=== PATIENT | male | born 1940 | race Caucasian/White ===

== ENCOUNTER 2018-09-13 04:42 | Outpatient (CLI) | payer MEDICARE, BC ==
[2018-09-13 11:44] LABS: #Basophils 0.1 thou/uL (0.0-0.2); #Eosinphils 0.3 thou/uL (0.0-0.7); #Lymphocytes 1.5 thou/uL (1.20-3.40); #Monocytes 0.7 thou/uL (0.11-0.59); #Neutrophils 6.8 thou/uL (1.40-6.50); %Basophils 0.7 % (0.0-1.0); %Eosinophils 3.4 % (0.0-10.0); %Lymphocytes 15.8 % (21.0-51.0); %Monocytes 7.2 % (0.0-10.0); %Neutrophils 72.9 % (42.0-75.0); Hemoglobin 14.4 g/dL (14.0-18.0); Mean Corpuscular HGB CONC 33.2 g/dL (32.0-36.0); Mean Corpuscular Hemoglobin 30.9 pg (27.0-31.0); Mean Corpuscular Volume 93.2 fL (78.0-98.0); Mean Platelet Volume 7.7 fL (7.4-10.4); Platelet Count 214 thou/uL (130-400); RBC Distribution Width 12.1 % (11.5-14.5); Red Blood Cell (RBC) Count 4.66 mill/uL (4.70-6.10); White Blood Cell (WBC) Count 9.4 thou/uL (4.8-10.8)
[2018-09-13 11:48] LABS: PTT 31.9 SEC (22.9-36.1); Prothrombin Time 13.3 SEC (12.0-14.7)
[2018-09-13 12:06] LABS: Anion Gap 12 mmol/L (10-20); BUN (Urea Nitrogen) 20 mg/dL (8.4-25.7); Calc. Creatinine Clearance 0 mL/min (70-130); Calcium 9.1 mg/dL (7.8-10.44); Carbon Dioxide 27 mmol/L (23-31); Chloride 102 mmol/L (98-107); Estimated GFR-MDRD 52; Glucose 157 mg/dL (83-110); Potassium 4.4 mmol/L (3.5-5.1); Sodium 137 mmol/L (136-145)
== END 2018-09-13 04:43 | disposition home or self-care (01) ==
LOC: LABBT 04:42
PROVIDERS: ATTEND Orthopaedic Surgery
DX: Z01.818 Encounter for other preprocedural examination (principal); M17.12 Unilateral primary osteoarthritis, left knee
CPT/HCPCS: 80048; 85025; 85610; 85730; 93005; 93010

== ENCOUNTER 2018-09-19 07:01 | Day surgery (SDC) | payer MEDICARE, BC ==
[2018-09-19] MEDS ORDERED: Tranexamic Acid 1,000 MG/10 ML VIAL ONE ×2 (07:37→07:40)
[2018-09-19] MEDS ORDERED: Sodium Chloride 0.9% 100 ML ONE (07:37)
[2018-09-19] MEDS ORDERED: Vancomycin HCl 1.5 GM in Sodium Chloride 0.9% 250 ML 300 ML IVPB SCH (08:00)
[2018-09-19] MEDS ORDERED: Midazolam HCl 2 mg/2 ml Vial ONE (08:36)
[2018-09-19] MEDS ORDERED: Fentanyl 100 MCG/2 ML VIAL ONE ×3 (08:36→10:58)
[2018-09-19] MEDS ORDERED: diphenhydrAMINE 25 MG CAP PO PRN (08:56)
[2018-09-19] MEDS ORDERED: Zolpidem Tartrate 5 MG TAB PO PRN ×2 (08:56→09:03)
[2018-09-19] MEDS ORDERED: Acetaminophen 325 MG TAB PO PRN (08:56)
[2018-09-19] MEDS ORDERED: Promethazine HCl 25 MG/ML VIAL IM PRN ×2 (08:56→09:03)
[2018-09-19] MEDS ORDERED: Ondansetron PF 4 MG/2 ML Vial IVP PRN ×2 (08:56→09:03)
[2018-09-19] MEDS ORDERED: Aspirin 325 mg Enteric Coated Tablet PO SCH (09:00)
[2018-09-19] MEDS ORDERED: traMADol HCl 50 MG TAB PO PRN ×2 (09:03)
[2018-09-19] MEDS ORDERED: HYDROcodone/Acetaminophen 10/325 mg Tablet PO PRN ×2 (09:03)
[2018-09-19] MEDS ORDERED: Ropivacaine HCl/PF 250 ML in Premix Bag 1 BAG NERVE BLCK SCH (09:03)
[2018-09-19] MEDS ORDERED: Fentanyl 100 MCG/2 ML VIAL IV PRN (09:04)
[2018-09-19] MEDS ORDERED: HYDROcodone/Acetaminophen 5/325 mg Tablet PO PRN (10:44)
--- NOTE | 2018-09-19 13:00 | RAD ---
TWO VIEWS LEFT KNEE: Comparison: None. History: Total knee replacement. FINDINGS: Two views of the left knee shows total left knee arthroplasty without perihardware lucency or fractur e. Air in the soft tissues is from recent surgery. IMPRESSION: Status post left knee arthroplasty without evidence of complication. POS: [facility]
[2018-09-19] MEDS ORDERED: Ropivacaine 0.5% HCl/PF (150 MG/30 ML VIAL) ONE (13:09)
[2018-09-19] MEDS ORDERED: Ropivacaine 0.2% HCl/PF (40 MG/20 ML VIAL) ONE (13:09)
--- NOTE | 2018-09-19 13:13 | OP ---
DATE OF PROCEDURE: 09/19/2018 This operative note is dictated by SAIMA Schroeder, for Tereso Thomas MD, to sign. PREOPERATIVE DIAGNOSIS: End-stage tricompartmental osteoarthritis, left knee. POSTOPERATIVE DIAGNOSIS: End-stage tricompartmental osteoarthritis, left knee. OPERATIVE PROCEDURE: Cemented cruciate sparing computer-assisted navigated left total knee arthroplasty. SURGEON: Tereso Thomas MD DISPENSING OPERATOR: Glen Schroeder PA-C ANESTHESIA: General via LMA augmented with single shot sciatic block and indwelling adductor canal block. Tourniquet time was 53 minutes at 300 mmHg. COMPONENTS USED: [facility] triathlon size 6 cruciate sparing femoral component cemented with a size 6 cemented primary tibial base plate, 9 mm polyethylene fixed bearing insert, and a 35 patella button. ESTIMATED BLOOD LOSS: Less than 100. FINDINGS: End-stage severe degenerative tricompartmental disease, [id number] arthrosis, periarticular osteophyte formation, large serous effusion, hypertrophic synovium. DRAINS: None. SPECIMENS: None. COMPLICATIONS: None. COUNTS: Correct. INDICATION FOR SURGERY: Calvin is a 78-year-old white male, who has had progressive left knee pain and problem with standing and walking for the last 5 to 7 years. He has failed conservative management and elected to proceed with total knee arthroplasty as definitive treatment of his pain. PROCEDURE IN DETAIL: After informed consent was obtained in the preoperative holding area, the patient was taken to the operative suite where general anesthesia was induced. Once adequate level of general anesthesia was obtained, the patient was positioned and a well-padded tourniquet was placed around the left proximal thigh. The left lower extremity was then prepped and draped in the usual sterile fashion. Prior to exsanguination, a time-out was called and all members of the surgical team agreed upon site, surgeon, and patient. The extremity was then exsanguinated and the tourniquet was raised. A midline longitudinal incision was then made directly over the patella extending 2 fingerbreadths above the superior pole of the patella and 2 fingerbreadths inferior to the inferior patellar pole of the patella. Deeper subcutaneous layers were dissected sharply and local bleeding was controlled with Bovie electrocautery. A quad tendon longitudinal split was then made sharply and a median parapatellar arthrotomy was carried out both sharp and with Bovie electrocautery, carried down to 1 fingerbreadth medial to the tibial tubercle. The knee was then placed into flexion and the patella was everted nicely, and a copious fat pad ectomy was performed, allowing for greater exposure of the tibia. The computer-assisted distal femoral fiducial was then placed and pinned firmly, and the distal femoral cutting guide was pinned firmly into place. The oscillating saw was then used to remove the appropriate amount of bone. The 4- in-1 cutting block was then placed on the distal femur and the oscillating saw was used to remove the appropriate amount of bone off the anterior, posterior, and chamfer cuts. After completion of bone cuts, the anterior cruciate ligament was resected sharply and the posterior cruciate ligament retractor was placed and the tibia was subluxed for better exposure. Partial meniscectomies were carried out, and the tibial computer-assisted fiducial was pinned, and the cutting guide was placed. Oscillating saw was then used to remove the bone, with Hohmann retractors used to take care and protect the collateral ligaments. After the tibial resection was performed, a laminar lab tech was placed in between the freshened bone cuts. The knee placed at 90 degrees and further bilateral meniscectomies were carried out , and the curved osteotome and curettage were used to remove any excess bone spurs in the posterior compartment. The trial femoral component, tibial baseplate were placed with the appropriate polyethylene trial insert with an appropriate polyethylene spacer and patellar button. The knee was taken through full range of motion with flexion and extension from 0 to 90 degrees and patellar broach squarely in the trochlea without any squinting or subluxation noted. The knee was also stable to varus and valgus stressing at 0, 15, 45, and 90 degrees of flexion. The drawer was negative. All trial components were then removed and the keel punch was used to provide the appropriate defect in the tibia with a mallet. The freshened bone cuts were copiously irrigated with pulsatile lavage of about 1.5 L to remove all excess debris. The freshened bone cuts were then dried with suction and lap sponge. The knee was placed in flexion and retractors were placed to provide access to all bone cuts. Tobramycin-impregnated methyl methacrylate cement was then placed on the freshened bone cuts and implants which were malleted firmly into place. Curettage and Garfield elevators were used to remove any excess bone cement. The knee was placed into full extension and the patellar button was placed under compression, and the cement was allowed to cure. Once completed, the components were again taken through full range of motion and copious irrigation of the knee was carried out with another liter of normal saline. All components were inspected fully with full range of motion and varus and valgus stressing. There was no laxity noted and full extension was observed clinically. Primary closure was accomplished with #2 interrupted Vicryl stitch of the arthrotomy defect. This was oversewn with a #2 running Quill barbed stitch. The subcutaneous layer was then closed with a running 0 barbed Monocryl stitch and skin closure accomplished with a running subcuticular 3-0 Monocryl barbed Quill stitch and augmented with cement on the skin. Tourniquet was lowered. Good spontaneous return of distal pulses was noted clinically and a sterile dressing was applied to the incision. The procedure was terminated without any complications. The patient was awakened in the operative suite and taken to the recovery room in stable condition. Job ID: [id number] [facility]
[2018-09-19 13:36] VITALS: BMI 33.2
[2018-09-19] MEDS: Lisinopril 20 MG TAB PO SCH (14:02)
[2018-09-19] MEDS: Aspirin 81 mg Enteric Coated Tablet PO SCH ×2 (14:02→20:18)
[2018-09-19] MEDS: Atenolol 25 MG TAB PO SCH (14:02)
[2018-09-19] MEDS ORDERED: PROPOFOL 200 MG/20 ML VIAL ONE (14:46)
[2018-09-19] MEDS ORDERED: Ondansetron PF 4 MG/2 ML Vial ONE (14:46)
[2018-09-19] MEDS ORDERED: Ketorolac Tromethamine 30 MG/ML VIAL ONE (14:46)
[2018-09-19] MEDS: CEFAZOLIN 2 GM in Premix Bag 1 BAG IVPB SCH ×2 (15:34→23:25)
[2018-09-19] MEDS: Sodium Chloride 0.9% 1,000 ML IV SCH ×2 (15:35→18:46)
[2018-09-19] MEDS ORDERED: Dextrose 50% Abboject 50 ML SYRINGE IVP PRN (16:59)
[2018-09-19] MEDS ORDERED: Dextrose 5% in Water 1,000 ML IV PRN (16:59)
[2018-09-19] MEDS: HumaLOG 300 UNITS/3 ML VIAL SC PRN (17:11)
[2018-09-19] MEDS: Tamsulosin HCl 0.4 MG CAP PO SCH (20:17)
[2018-09-19] MEDS: Glimepiride 4 MG TAB PO SCH (20:17)
[2018-09-19] MEDS: Finasteride 5 MG TAB PO SCH (20:18)
[2018-09-20] MEDS: HYDROcodone/Acetaminophen 5/325 mg Tablet PO PRN ×3 (03:09→18:36)
[2018-09-20] MEDS: Sodium Chloride 0.9% 1,000 ML IV SCH ×2 (04:44→15:04)
[2018-09-20 05:54] LABS: Hemoglobin 12.4 g/dL (14.0-18.0); Mean Corpuscular HGB CONC 33.8 g/dL (32.0-36.0); Mean Corpuscular Hemoglobin 31.4 pg (27.0-31.0); Mean Platelet Volume 7.2 fL (7.4-10.4); Platelet Count 189 thou/uL (130-400); RBC Distribution Width 11.9 % (11.5-14.5); Red Blood Cell (RBC) Count 3.96 mill/uL (4.70-6.10); White Blood Cell (WBC) Count 12.4 thou/uL (4.8-10.8)
[2018-09-20] MEDS: HumaLOG 300 UNITS/3 ML VIAL SC PRN ×3 (06:00→18:30)
[2018-09-20] MEDS: Aspirin 81 mg Enteric Coated Tablet PO SCH ×2 (08:17→21:24)
[2018-09-20] MEDS: Multivitamin W/ Minerals 1 TAB PO SCH (08:17)
[2018-09-20] MEDS: Ferrous Gluconate 324 MG TAB PO SCH ×2 (08:18→21:24)
[2018-09-20] MEDS: metFORMIN 500 MG TAB PO SCH (08:18)
[2018-09-20] MEDS: Senokot S 8.6-50 MG TAB PO SCH ×2 (08:18→21:26)
[2018-09-20] MEDS: Atenolol 25 MG TAB PO SCH (08:18)
[2018-09-20] MEDS: Loratadine 10 MG TAB PO SCH (08:18)
[2018-09-20] MEDS: Glimepiride 4 MG TAB PO SCH ×2 (08:19→21:24)
[2018-09-20] MEDS: Lisinopril 20 MG TAB PO SCH (08:19)
--- NOTE | 2018-09-20 08:40 | CON ---
DATE OF CONSULTATION: 09/20/2018 HISTORY OF PRESENT ILLNESS: The patient is a 78-year-old male, who underwent left knee replacement surgery. He has a previous history of hypertension, type 2 diabetes mellitus. . He has undergone left total knee replacement and has been doing well since the surgery. PAST SURGICAL HISTORY: Positive for right total knee replacement, colectomy, hernia repair. PAST MEDICAL HISTORY: Positive as above. PHYSICAL EXAMINATION: VITAL SIGNS: Temperature 98.0, blood pressure 167/72. LUNGS: Clear. HEART: Reveals no murmur. ABDOMEN: Soft and nontender. Bowel sounds are present and active. LABORATORY DATA: Postoperative hemoglobin 12.4, hematocrit 36.8. Blood sugars are adequately controlled. IMPRESSION: Stable postoperative course. PLAN: Continue current medications. Job ID: [id number]
--- NOTE | 2018-09-20 12:15 | PRG ---
DATE OF SERVICE: 09/20/2018 SUBJECTIVE: Calvin is a 78-year-old male, who is postop day #1 from left total knee arthroplasty. His primary complaint today is regarding the extravasation around his femoral block. He has had adequate pain control, but he questions whether or not block is doing any good. OBJECTIVE: VITAL SIGNS: Temperature 98, pulse 76, respiratory rate 20 and nonlabored, blood pressure is 119/63. NEUROLOGIC AND EXTREMITIES: He is alert and oriented to person, place, time, situation. Grossly nonfocal. Appropriate and conversive with examiner. Visual inspection of the left lower extremity demonstrates his incision to be clean without any strike through. He is neurovascular intact in the extremity. He is sitting up, talking. LABORATORY DATA: Hemoglobin and hematocrit are 12.4 and 36.8. IMPRESSION: A 78-year-old male, postop day #1 left total knee arthroplasty, doing well. PLAN: Continue current care. Probable discharge tomorrow. Job ID: [id number]
[2018-09-20] MEDS ORDERED: Polyethylene Glycol 3350 17 GM Packet PO SCH (16:00)
[2018-09-20] MEDS: Finasteride 5 MG TAB PO SCH (21:24)
[2018-09-20] MEDS: Tamsulosin HCl 0.4 MG CAP PO SCH (21:26)
[2018-09-21] MEDS: Sodium Chloride 0.9% 1,000 ML IV SCH ×2 (00:08→10:06)
[2018-09-21] MEDS: HumaLOG 300 UNITS/3 ML VIAL SC PRN (05:55)
[2018-09-21 06:19] LABS: Mean Corpuscular HGB CONC 33.6 g/dL (32.0-36.0); Mean Corpuscular Hemoglobin 30.9 pg (27.0-31.0); Mean Platelet Volume 7.6 fL (7.4-10.4); Platelet Count 218 thou/uL (130-400); Red Blood Cell (RBC) Count 4.22 mill/uL (4.70-6.10); White Blood Cell (WBC) Count 14.7 thou/uL (4.8-10.8)
[2018-09-21] MEDS ORDERED: Polyethylene Glycol 3350 17 GM Packet PO SCH (09:00)
[2018-09-21] MEDS: Multivitamin W/ Minerals 1 TAB PO SCH (09:06)
[2018-09-21] MEDS: Senokot S 8.6-50 MG TAB PO SCH (09:06)
[2018-09-21] MEDS: Ferrous Gluconate 324 MG TAB PO SCH (09:06)
[2018-09-21] MEDS: metFORMIN 500 MG TAB PO SCH (09:06)
[2018-09-21] MEDS: Loratadine 10 MG TAB PO SCH (09:07)
[2018-09-21] MEDS: Glimepiride 4 MG TAB PO SCH (09:07)
[2018-09-21] MEDS: Aspirin 81 mg Enteric Coated Tablet PO SCH (09:07)
[2018-09-21] MEDS: Atenolol 25 MG TAB PO SCH (09:08)
[2018-09-21] MEDS: Lisinopril 20 MG TAB PO SCH (09:08)
--- NOTE | 2018-09-21 11:12 | PRG ---
DATE OF SERVICE: 09/21/2018 SUBJECTIVE: Mr. Cheung is doing well. He has medical complaints status post total knee replacement. OBJECTIVE: VITAL SIGNS: Blood pressure 154/63, temperature 98.2, pulse 83, O2 saturation is 91% on room air. LUNGS: Clear. HEART: Reveals no murmur. LABORATORY DATA: His blood sugars are adequately controlled. IMPRESSION: Status post total knee replacement, did well. PLAN: Continue current rehab and therapy. Continue current medications. Job ID: [id number]
[2018-09-21 14:49] VITALS: BP 141/72; TEMP 98.2
== END 2018-09-21 13:10 | disposition home or self-care (01) ==
LOC: SDC 07:01 → SURG B 08:54 → SDC 09-21 13:10
PROVIDERS: ATTEND Orthopaedic Surgery
PROC: 0SRD0J9 Replacement of Left Knee Joint with Synthetic Substitute, Cemented, Open Approach (ICD-10-PCS; principal; 2018-09-19)
PROC: 8E0YXBZ Computer Assisted Procedure of Lower Extremity (ICD-10-PCS; 2018-09-19)
DX: M17.12 Unilateral primary osteoarthritis, left knee (principal); E11.9 Type 2 diabetes mellitus without complications; N40.0 Benign prostatic hyperplasia without lower urinary tract symptoms; I10 Essential (primary) hypertension; Z79.82 Long term (current) use of aspirin; Z79.84 Long term (current) use of oral hypoglycemic drugs; Z79.899 Other long term (current) drug therapy; Z88.7 Allergy status to serum and vaccine; Z88.8 Allergy status to other drugs, medicaments and biological substances
CPT/HCPCS: 20985; 27447; 73560; 82962; 85027; 86850; 86900; 86901; 87081; 97110; 97116 ×3; 97139 ×2; 97150 ×2; 97530; 98962; C1713; C1776; 36415; 36416; J1885; J2250; J2405; J2704; J2795; J3010; J3370; J7050; Q0163

== ENCOUNTER 2020-12-02 01:49 | Emergency (ER) | payer MEDICARE ==
[2020-12-02] MEDS ORDERED: Ondansetron PF 4 MG/2 ML Vial ONE (02:29)
[2020-12-02 02:31] LABS: #Eosinphils 0.2 thou/uL (0.0-0.7); #Lymphocytes 1.3 thou/uL (1.20-3.40); #Monocytes 0.7 thou/uL (0.11-0.59); #Neutrophils 8.8 thou/uL (1.40-6.50); %Basophils 0.4 % (0.0-1.0); %Eosinophils 2.2 % (0.0-10.0); %Lymphocytes 11.6 % (21.0-51.0); %Monocytes 6.1 % (0.0-10.0); %Neutrophils 79.8 % (42.0-75.0); Hemoglobin 14.2 g/dL (14.0-18.0); Mean Corpuscular HGB CONC 34.4 g/dL (32.0-36.0); Mean Corpuscular Hemoglobin 32.4 pg (27.0-31.0); Mean Corpuscular Volume 94.2 fL (78.0-98.0); Mean Platelet Volume 7.5 fL (7.4-10.4); Platelet Count 200 thou/uL (130-400); RBC Distribution Width 12.7 % (11.5-14.5); Red Blood Cell (RBC) Count 4.37 mill/uL (4.70-6.10); White Blood Cell (WBC) Count 11.1 thou/uL (4.8-10.8)
[2020-12-02 02:36] LABS: Bilirubin Negative (Negative); Blood, Urine Negative (Negative); Glucose, Urine (Dipstick) Negative (Negative); Ketone, Urine Negative (Negative); Leukocyte Negative (Negative); Nitrite Negative (Negative); Protein, Urine (Dipstick) Negative (Neg-Trace); Urobilinogen 0.2 mg/dL (Less than 2); pH, Urine 5.5 (5.0-9.0)
[2020-12-02 02:37] LABS: Clarity Clear (Clear)
[2020-12-02 02:51] LABS: ALT (SGPT) 12 U/L (8-55); AST (SGOT) 13 U/L (5-34); Albumin 3.7 g/dL (3.4-4.8); Alkaline Phosphatase 82 U/L (40-110); Anion Gap 13 mmol/L (10-20); BUN (Urea Nitrogen) 29 mg/dL (8.4-25.7); Bilirubin, Total 0.3 mg/dL (0.2-1.2); Calc. Creatinine Clearance 0 mL/min (70-130); Calcium 9.2 mg/dL (7.8-10.44); Carbon Dioxide 24 mmol/L (23-31); Chloride 103 mmol/L (98-107); Globulin 3.5 g/dL (2.4-3.5); Glucose 162 mg/dL (83-110); Potassium 4.6 mmol/L (3.5-5.1); Protein, Total 7.2 g/dL (5.8-8.1); Sodium 135 mmol/L (136-145)
[2020-12-02] MEDS ORDERED: Iopamidol 370 76% 100 ML VIAL ONE (13:26)
== END 2020-12-02 04:38 | disposition home or self-care (01) ==
LOC: ERS 01:49
DX: R53.1 Weakness (principal); R11.2 Nausea with vomiting, unspecified; E11.9 Type 2 diabetes mellitus without complications; I10 Essential (primary) hypertension; Z79.84 Long term (current) use of oral hypoglycemic drugs; Z79.899 Other long term (current) drug therapy
CPT/HCPCS: 74177; 80053; 81003; 83690; 84484; 85025; 93005; 96374; J2405; Q9967

== ENCOUNTER 2025-02-19 07:22 | Outpatient (CLI) | payer MEDICARE | END 2025-02-19 07:23 | disposition home or self-care (01) | LOC: SCSMRI 07:22 | PROVIDERS: ATTEND Otolaryngology Plastic Surgery within the Head & Neck | DX: R51.9 Headache, unspecified (principal); H60.92 Unspecified otitis externa, left ear; H70.92 Unspecified mastoiditis, left ear; I63.9 Cerebral infarction, unspecified | CPT/HCPCS: 70553; 76376 ==

== ENCOUNTER 2025-03-03 17:26 | Emergency (ER) | payer MEDICARE ==
[2025-03-03 19:35] LABS: #Basophils 0.07 10x3/uL (0.0-0.2); #Eosinophils 0.18 10x3/uL (0.0-0.7); #Monocytes 0.86 10x3/uL (0.11-0.59); #Neutrophils 9.39 10x3/uL (1.40-6.50); %Basophils 0.6 % (0.0-1.0); %Eosinophils 1.4 % (0.0-10.0); %Lymphocytes 15.5 % (21.0-51.0); %Monocytes 6.9 % (0.0-10.0); %Neutrophils 75.1 % (42.0-75.0); Hematocrit 39.9 % (42.0-52.0); Hemoglobin 12.4 g/dL (14.0-18.0); Mean Corpuscular Hemoglobin 28.6 pg (27.0-31.0); Mean Corpuscular Volume 91.9 fL (78.0-98.0); Platelet Count 296 10x3/uL (130-400); Red Blood Cell (RBC) Count 4.34 mill/uL (4.70-6.10); White Blood Cell (WBC) Count 12.49 10x3/uL (4.8-10.8)
[2025-03-03 19:55] LABS: ALT (SGPT) 11 U/L (Less than 45); AST (SGOT) 15 U/L (11-34); Albumin 3.5 g/dL (3.1-4.5); Alkaline Phosphatase 80 U/L (40-110); Anion Gap 15 mmol/L (10-20); BUN (Urea Nitrogen) 32 mg/dL (8.4-25.7); Bilirubin, Total 0.2 mg/dL (0.3-1.2); Calc. Creatinine Clearance 0 mL/min (70-130); Calcium 9.6 mg/dL (7.8-10.44); Carbon Dioxide 25 mmol/L (23-31); Chloride 101 mmol/L (98-107); Globulin 3.6 g/dL (2.4-3.5); Glucose 63 mg/dL (83-110); Lipase 11 U/L (8-78); Magnesium 1.9 mg/dL (1.6-2.6); Potassium 4.9 mmol/L (3.5-5.1); Sodium 136 mmol/L (136-145)
== END 2025-03-03 20:14 | disposition home or self-care (01) ==
LOC: ERS 17:26
DX: M25.512 Pain in left shoulder (principal); M79.602 Pain in left arm; E11.9 Type 2 diabetes mellitus without complications; I10 Essential (primary) hypertension; Z79.84 Long term (current) use of oral hypoglycemic drugs; Z79.899 Other long term (current) drug therapy
CPT/HCPCS: 36415; 71045; 80053; 83690; 83735; 83880; 84484; 85025; 93005; 96374; 96375